=== PATIENT | male | born 1945 | race Caucasian/White ===

== ENCOUNTER 2018-10-09 20:50 | Inpatient (IN) | payer OTHER ==
[~2018-10-09] VITALS: Ht 177.8 cm; Wt 152.9 kg
[2018-10-09 20:50] VITALS: BP_SYST 170
[2018-10-09] MEDS ORDERED: ASPIRIN 81 MG TAB.CHEW PO ONE (21:00)
[2018-10-09] MEDS ORDERED: MORPHINE 4 MG/ML INJ. SYRINGE IVP ONE ×2 (21:00→23:15)
[2018-10-09 21:21] LABS: BASOPHILS # (AUTO) 0.1 K/uL (0.0-0.2); BASOPHILS % (AUTO) 0.7 % (0.0-2.0); EOSINOPHILS # (AUTO) 0.2 K/uL (0.0-0.4); EOSINOPHILS % (AUTO) 1.6 % (0.0-4.0); HEMATOCRIT 38.8 % (36-54); HEMOGLOBIN 13.2 g/dL (14.0-18.0); LYMPHOCYTES # (AUTO) 2.1 K/uL (1.0-5.5); LYMPHOCYTES % (AUTO) 20.9 % (20.5-51.5); MEAN CORPUSCULAR HEMOGLOBIN 33 pg (27-31); MEAN CORPUSCULAR HGB CONC 34 % (32-36); MEAN CORPUSCULAR VOLUME 98 fL (79.0-98.0); MONOCYTES # (AUTO) 0.8 K/uL (0.0-1.0); MONOCYTES % (AUTO) 7.5 % (1.7-9.3); NEUTROPHILS # (AUTO) 7.1 K/uL (1.8-7.7); NEUTROPHILS % (AUTO) 69.3 % (40.0-70.0); PLATELET COUNT (AUTO) 272 K/uL (130-430); RED BLOOD CELL COUNT(AUTO) 3.96 MIL/uL (4.2-6.2); RED CELL DISTRIBUTION WIDTH 12.8 % (9.0-15.0); WHITE BLOOD COUNT (AUTO) 10.3 K/uL (4.8-10.8)
[2018-10-09] MEDS ORDERED: DOXA4TAB2 PO (21:31)
[2018-10-09] MEDS ORDERED: HYDR-4037 PO (21:32)
[2018-10-09] MEDS ORDERED: ASPIRIN 81 MG TAB.CHEW ONE (21:33)
[2018-10-09] MEDS ORDERED: INSU100I4 SQ ×2 (21:37)
[2018-10-09 21:38] LABS: ANION GAP 12 (5-15); CALCIUM 8.8 mg/dL (8.4-11.0); CHLORIDE 103 mmol/L (98-107); CREATININE 2.41 mg/dL (0.55-1.30); GLUCOSE 172 mg/dL (70-99); POTASSIUM 4.2 mmol/L (3.5-5.1); SODIUM SERUM 138 mmol/L (136-145); UREA NITROGEN, BLOOD 50 mg/dL (8-21)
[2018-10-09] MEDS ORDERED: INSU100V9 SQ (21:38)
[2018-10-09] MEDS ORDERED: ISOS30TA6 PO (21:39)
[2018-10-09] MEDS ORDERED: LISI40TA4 PO (21:39)
[2018-10-09] MEDS ORDERED: METF1000 PO (21:40)
[2018-10-09] MEDS ORDERED: TOPXL100 PO (21:40)
[2018-10-09] MEDS ORDERED: NITR0.4T47 SL (21:41)
[2018-10-09 21:42] LABS: ALANINE AMINOTRANSFERASE 25 U/L (12-78); ALBUMIN 3.5 g/dL (3.4-4.8); ASPARTATE AMINOTRANSFERASE 11 U/L (10-37); TOTAL BILIRUBIN 0.5 mg/dL (0.0-1.0)
[2018-10-09] MEDS ORDERED: SPIR25TA6 PO (21:42)
[2018-10-09] MEDS ORDERED: ASPI-1155 PO (21:44)
[2018-10-09] MEDS ORDERED: NITROGLYCERIN 0.4 MG TAB.SUBL SL PRN (23:45)
[2018-10-09] MEDS ORDERED: DEXTROSE 50% JECT 50 ML DISP.SYRIN IVP PRN (23:45)
[2018-10-10] VITALS (18 sets, daily range): BP systolic 150–183
[2018-10-10] MEDS ORDERED: *HEPARIN PER PHARMACY XX ONE
[2018-10-10 00:19] LABS: INR 0.9 (0.80-1.20); PROTHROMBIN TIME 9.6 SECS (9.5-12.5)
[2018-10-10] MEDS ORDERED: HEPARIN SODIUM,PORCINE 2000 UNITS/0.4 ML BOLUS IVP PRN (01:30)
[2018-10-10] MEDS ORDERED: HEPARIN SODIUM,PORCINE 3000 UNITS/0.6 ML BOLUS IVP PRN (01:30)
[2018-10-10] MEDS: cloNIDine HCL 0.1 MG TABLET PO PRN ×4 (01:33→16:33)
[2018-10-10] MEDS: HEPARIN 25,000 UNITS in 250 ML PREMIX IV PRN ×3 (01:42→23:20)
[2018-10-10] MEDS ORDERED: HEPARIN SODIUM,PORCINE 5000 UNITS/ML VIAL IVP SCH (02:00)
[2018-10-10 05:15] LABS: BILIRUBIN,URINE NEGATIVE (NEGATIVE); BLOOD, URINE NEGATIVE (NEGATIVE); CLARITY/URINE CLEAR (CLEAR); COLOR,URINE YELLOW (YELLOW); GLUCOSE,URINE NEGATIVE (NEGATIVE); KETONES,URINE NEGATIVE (NEGATIVE); LEUKOCYTE ESTERASE ,URINE NEGATIVE (NEGATIVE); NITRITE, URINE NEGATIVE (NEGATIVE); PROTEIN URINE NEGATIVE (NEGATIVE); UROBILINOGEN,URINE 0.2 (0.2-1.0)
[2018-10-10] MEDS ORDERED: metFORMIN HCL 500 MG TABLET PO SCH (08:00)
[2018-10-10 08:03] LABS: BASOPHILS % (AUTO) 0.4 % (0.0-2.0); EOSINOPHILS # (AUTO) 0.1 K/uL (0.0-0.4); EOSINOPHILS % (AUTO) 1.2 % (0.0-4.0); HEMATOCRIT 38.6 % (36-54); HEMOGLOBIN 12.8 g/dL (14.0-18.0); LYMPHOCYTES # (AUTO) 1.9 K/uL (1.0-5.5); LYMPHOCYTES % (AUTO) 17.1 % (20.5-51.5); MEAN CORPUSCULAR HEMOGLOBIN 33 pg (27-31); MEAN CORPUSCULAR HGB CONC 33 % (32-36); MEAN CORPUSCULAR VOLUME 99 fL (79.0-98.0); MONOCYTES # (AUTO) 0.8 K/uL (0.0-1.0); NEUTROPHILS # (AUTO) 8.1 K/uL (1.8-7.7); NEUTROPHILS % (AUTO) 74.3 % (40.0-70.0); PLATELET COUNT (AUTO) 248 K/uL (130-430); RED BLOOD CELL COUNT(AUTO) 3.89 MIL/uL (4.2-6.2); WHITE BLOOD COUNT (AUTO) 10.9 K/uL (4.8-10.8)
[2018-10-10] MEDS: ASPIRIN 81 MG TAB.CHEW PO SCH (08:15)
[2018-10-10] MEDS: ISOSORBIDE MONONITRATE 30 MG TAB.ER.24H PO SCH (08:15)
[2018-10-10] MEDS: CARVEDILOL 25 MG TABLET (COREG) PO SCH ×2 (08:16→21:08)
[2018-10-10 08:31] LABS: ANION GAP 10 (5-15); CALCIUM 8.8 mg/dL (8.4-11.0); CHLORIDE 104 mmol/L (98-107); CREATININE 2.14 mg/dL (0.55-1.30); GLUCOSE 140 mg/dL (70-99); POTASSIUM 4.8 mmol/L (3.5-5.1); SODIUM SERUM 141 mmol/L (136-145); UREA NITROGEN, BLOOD 48 mg/dL (8-21)
[2018-10-10 08:45] LABS: ALANINE AMINOTRANSFERASE 24 U/L (12-78); ALBUMIN 3.4 g/dL (3.4-4.8); ASPARTATE AMINOTRANSFERASE 37 U/L (10-37); FREE T4 (FREE THYROXINE) 1.1 ng/dl (0.8-1.5); PHOSPHORUS 4.5 mg/dL (2.7-4.5); THYROID STIMULATING HORMONE 1.93 uIu/mL (0.36-3.74); TOTAL BILIRUBIN 0.5 mg/dL (0.0-1.0)
[2018-10-10] MEDS ORDERED: SPIRONOLACTONE 25 MG TABLET (ALDACTONE) PO SCH (09:00)
[2018-10-10] MEDS ORDERED: hydrALAZINE HCL 10 MG TABLET PO SCH (09:00)
[2018-10-10] MEDS ORDERED: LISINOPRIL 20 MG TABLET PO SCH (09:00)
[2018-10-10] MEDS ORDERED: METOPROLOL SUCCINATE 50 MG TAB.SR.24H (TOPROL XL) PO SCH (09:00)
[2018-10-10] MEDS: INSULIN Lispro 100 UNITS/ML VIAL (humaLOG) SQ SCH (12:22)
[2018-10-10] MEDS ORDERED: HEPARIN SODIUM,PORCINE 5000 UNITS/ML VIAL ONE ×2 (16:59→23:25)
[2018-10-10] MEDS: DOXAZOSIN MESYLATE 2 MG TABLET PO SCH (21:07)
[2018-10-10] MEDS: hydrALAZINE HCL 10 MG TABLET PO SCH (21:08)
[2018-10-10] MEDS: INSULIN REGULAR, HUMAN 100 UNITS/ML, 10 ML VIAL (novoLIN R) SUBCUT PRN (21:14)
[2018-10-10] MEDS: HYDROcodone/ACETAMIN 5-325 MG TAB (NORCO/ VICODIN) PO PRN (23:20)
[2018-10-11] VITALS (24 sets, daily range): BP systolic 122–178
[2018-10-11] MEDS: cloNIDine HCL 0.1 MG TABLET PO PRN (05:57)
[2018-10-11] MEDS: hydrALAZINE HCL 10 MG TABLET PO SCH ×3 (08:45→20:09)
[2018-10-11] MEDS: ASPIRIN 81 MG TAB.CHEW PO SCH (08:46)
[2018-10-11] MEDS: ISOSORBIDE MONONITRATE 30 MG TAB.ER.24H PO SCH (08:46)
[2018-10-11] MEDS: CARVEDILOL 25 MG TABLET (COREG) PO SCH ×2 (08:47→20:08)
[2018-10-11 09:56] LABS: BASOPHILS % (AUTO) 0.4 % (0.0-2.0); EOSINOPHILS # (AUTO) 0.1 K/uL (0.0-0.4); HEMATOCRIT 38.9 % (36-54); HEMOGLOBIN 12.8 g/dL (14.0-18.0); LYMPHOCYTES # (AUTO) 1.4 K/uL (1.0-5.5); LYMPHOCYTES % (AUTO) 13.4 % (20.5-51.5); MEAN CORPUSCULAR HEMOGLOBIN 33 pg (27-31); MEAN CORPUSCULAR HGB CONC 33 % (32-36); MEAN CORPUSCULAR VOLUME 100 fL (79.0-98.0); MONOCYTES # (AUTO) 0.8 K/uL (0.0-1.0); MONOCYTES % (AUTO) 7.1 % (1.7-9.3); NEUTROPHILS # (AUTO) 8.4 K/uL (1.8-7.7); NEUTROPHILS % (AUTO) 78.1 % (40.0-70.0); PLATELET COUNT (AUTO) 242 K/uL (130-430); RED BLOOD CELL COUNT(AUTO) 3.91 MIL/uL (4.2-6.2); RED CELL DISTRIBUTION WIDTH 12.8 % (9.0-15.0); WHITE BLOOD COUNT (AUTO) 10.8 K/uL (4.8-10.8)
[2018-10-11 10:22] LABS: ANION GAP 9 (5-15); CALCIUM 8.7 mg/dL (8.4-11.0); CHLORIDE 103 mmol/L (98-107); CREATININE 1.82 mg/dL (0.55-1.30); GLUCOSE 220 mg/dL (70-99); UREA NITROGEN, BLOOD 41 mg/dL (8-21)
[2018-10-11 10:35] LABS: ALANINE AMINOTRANSFERASE 25 U/L (12-78); ALBUMIN 3.3 g/dL (3.4-4.8); ASPARTATE AMINOTRANSFERASE 34 U/L (10-37); TOTAL BILIRUBIN 0.6 mg/dL (0.0-1.0)
[2018-10-11 10:37] LABS: SODIUM SERUM 138 mmol/L (136-145)
[2018-10-11] MEDS: INSULIN Lispro 100 UNITS/ML VIAL (humaLOG) SQ SCH (11:17)
[2018-10-11] MEDS ORDERED: INSULIN Lispro 100 UNITS/ML VIAL (humaLOG) SQ SCH (12:33)
[2018-10-11] MEDS: INSULIN REGULAR, HUMAN 100 UNITS/ML, 10 ML VIAL (novoLIN R) SUBCUT PRN ×2 (17:22→20:18)
[2018-10-11] MEDS: HEPARIN 25,000 UNITS in 250 ML PREMIX IV PRN (18:16)
[2018-10-11] MEDS: HYDROcodone/ACETAMIN 5-325 MG TAB (NORCO/ VICODIN) PO PRN (20:08)
[2018-10-11] MEDS: DOXAZOSIN MESYLATE 2 MG TABLET PO SCH (20:09)
[2018-10-12] VITALS (11 sets, daily range): BP systolic 147–188
[2018-10-12] MEDS: INSULIN REGULAR, HUMAN 100 UNITS/ML, 10 ML VIAL (novoLIN R) SUBCUT PRN (06:10)
[2018-10-12] MEDS: ISOSORBIDE MONONITRATE 30 MG TAB.ER.24H PO SCH (08:22)
[2018-10-12] MEDS: CARVEDILOL 25 MG TABLET (COREG) PO SCH (08:23)
[2018-10-12] MEDS: HEPARIN 25,000 UNITS in 250 ML PREMIX IV PRN (08:27)
== END 2018-10-12 10:13 | disposition short-term general hospital (02) | DRG 281 ==
LOC: SED 20:50 → STU 23:35 → SIC 10-10 11:26
PROVIDERS: ADMIT Internal Medicine Hospice and Palliative Medicine; ATTEND Internal Medicine Hospice and Palliative Medicine
DX: I21.4 Non-ST elevation (NSTEMI) myocardial infarction (principal); Z68.42 Body mass index [BMI] 45.0-49.9, adult; N17.9 Acute kidney failure, unspecified; E66.01 Morbid (severe) obesity due to excess calories; I25.10 Atherosclerotic heart disease of native coronary artery without angina pectoris; E11.9 Type 2 diabetes mellitus without complications; I11.0 Hypertensive heart disease with heart failure; D64.9 Anemia, unspecified; I50.9 Heart failure, unspecified; E78.5 Hyperlipidemia, unspecified; Z82.49 Family history of ischemic heart disease and other diseases of the circulatory system; Z83.3 Family history of diabetes mellitus; Z95.5 Presence of coronary angioplasty implant and graft; Z79.899 Other long term (current) drug therapy; Z79.82 Long term (current) use of aspirin
CPT/HCPCS: 36415; 71045; 80053; 81003; 82962; 83735-TC; 83880; 84100-TC; 84439; 84443-TC; 84484; 85025; 85379; 85610-TC; 85730-TC; 87081; 93005; 93306; 96374; 96376; 99285; G0378; J1644; J1815; J2270